=== PATIENT | female | born 1985 | race Caucasian/White ===

== ENCOUNTER 2017-09-27 20:08 | Emergency (ER) | payer BC, OTHER | END 2017-09-27 20:45 | disposition home or self-care (01) | LOC: ER 20:08 | DX: S60.021A Contusion of right index finger without damage to nail, initial encounter (principal); W23.0XXA Caught, crushed, jammed, or pinched between moving objects, initial encounter; Y93.89 Activity, other specified; Y92.89 Other specified places as the place of occurrence of the external cause; Y99.8 Other external cause status | CPT/HCPCS: 73140; 99284 ==

== ENCOUNTER 2020-05-29 17:39 | Emergency (ER) | payer BC, OTHER ==
[~2020-05-29] VITALS: Ht 157.5 cm; Wt 59.0 kg
[2020-05-29 18:09] VITALS: BP 117/67
[2020-05-29 18:25] LABS: BILIRUBIN,URINE NEGATIVE (NEG); CLARITY,URINE CLOUDY; COLOR,URINE YELLOW; NITRITE,URINE POSITIVE (NEG); PROTEIN,URINE 100 mg/dL (NEG-TRACE); UROBILINOGEN,URINE 0.2 mg/dL (0.2 mg/dL)
[2020-05-29 18:30] LABS: BACTERIA,URINE FEW /HPF (0-FEW); RBC,URINE 0 /HPF (0-2); WBC,URINE TNTC /HPF (0-4)
[2020-05-29] MEDS ORDERED: PHEN100T82 PO (18:53)
[2020-05-29] MEDS ORDERED: CEPH-264 PO (18:54)
--- NOTE | 2020-05-29 18:55 | PHYS DOC ---
Past Medical History Past Medical History: No Pertinent History Past Surgical History: No Surgical History Smoking Status: Current Every Day Smoker Alcohol Use: Occasionally Drug Use: None General Adult EDM: Chief Complaint: URINARY FREQUENCY HPI: HPI: Patient is a 34 year old female who presents with right flank pain with urinary frequency. She states she is been taking Azo. She states she gets frequent urine Juan Luis tract infections. She has a straight of kidney stones. Patient is concerned that she has a kidney stone that is blocking. Patient denies nausea, vomiting, abdominal pain, fever, diarrhea, cough, chest pain, shortness of breath. She rates her pain a 5 out of 10 it is a dull aching pain. Patient has a history of urinary tract infections and kidney stone. Review of Systems: Review of Systems: Constitutional: Denies fever or chills. [] Eyes: Denies change in visual acuity. [] HENT: Denies nasal congestion or sore throat. [] Respiratory: Denies cough or shortness of breath. [] Cardiovascular: Denies chest pain or edema. [] GI: Denies abdominal pain, nausea, vomiting, bloody stools or diarrhea. [] : Denies dysuria. + Urinary frequency [] Musculoskeletal: + Right flank back pain or denies joint pain. [] Integument: Denies rash. [] Neurologic: Denies headache, focal weakness or sensory changes. [] Endocrine: Denies polyuria or polydipsia. [] Lymphatic: Denies swollen glands. [] Psychiatric: Denies depression or anxiety. [] Heart Score: Risk Factors: Risk Factors: DM, Current or recent (<one month) smoker, HTN, HLP, family history of CAD, obesity. Risk Scores: Score 0 - 3: 2.5% MACE over next 6 weeks - Discharge Home Score 4 - 6: 20.3% MACE over next 6 weeks - Admit for Clinical Observation Score 7 - 10: 72.7% MACE over next 6 weeks - Early Invasive Strategies Physical Exam: PE: Constitutional: Well developed, well nourished, no acute distress, non-toxic appearance. [] HENT: Normocephalic, atraumatic, bilateral external ears normal, oropharynx moist, no oral exudates, nose normal. [] Eyes: PERRLA, EOMI, conjunctiva normal, no discharge. [] Neck: Normal range of motion, no tenderness, supple, no stridor. [] Cardiovascular:Heart rate regular rhythm, no murmur [] Lungs & Thorax: Bilateral breath sounds clear to auscultation [] Abdomen: Bowel sounds normal, soft, no tenderness, no masses, no pulsatile masses. [] Skin: Warm, dry, no erythema, no rash. [] Back: No tenderness, right CVA tenderness. [] Extremities: No tenderness, no cyanosis, no clubbing, ROM intact, no edema. [] Neurologic: Alert and oriented X 3, normal motor function, normal sensory function, no focal deficits noted. [] Psychologic: Affect normal, judgement normal, mood normal. [] Current Patient Data: Labs: Laboratory Tests Test 05/29/20 18:15 05/29/20 18:17 Urine Collection Type Unknown Urine Color Yellow Urine Clarity Cloudy Urine pH 6.0 (<5.0-8.0) Urine Specific [place] 1.015 (1.000-1.030) Urine Protein 100 mg/dL (NEG-TRACE) Urine Glucose (UA) Negative mg/dL (NEG) Urine Ketones (Stick) Negative mg/dL (NEG) Urine Blood Moderate (NEG) Urine Nitrite Positive (NEG) Urine Bilirubin Negative (NEG) Urine Urobilinogen Dipstick 0.2 mg/dL (0.2 mg/dL) Urine Leukocyte Esterase Large (NEG) Urine RBC 0 /HPF (0-2) Urine WBC Tntc /HPF (0-4) Urine Bacteria Few /HPF (0-FEW) Urine Mucus Mod /LPF POC Urine HCG, Qualitative Hcg negative (Negative) EKG: EKG: [] Radiology/Procedures: Radiology/Procedures: [] Course & Med Decision Making: Course & Med Decision Making Pertinent Labs and Imaging studies reviewed. (See chart for details) See HPI. Right CVA tenderness. Abdomen soft and nontender. Vital signs within normal limits. Skin pink warm and dry. Ambulatory with a steady gait. Speaks in full complete sentences. Alert and oriented x4. Patient has a urinary tract infection with positive nitrites. She will be sent home with Keflex and Pyridium. Patient to follow-up with a primary care physician or a urologist. KUB read by Dr Najera as no obvious kidney stone. [] Odalis Disclaimer: Odalis Disclaimer: This electronic medical record was generated, in whole or in part, using a voice recognition dictation system. Departure Departure Impression: Primary Impression: Urinary tract infection Qualified Codes: N39.0 - Urinary tract infection, site not specified Disposition: 01 DC HOME SELF CARE/HOMELESS Condition: STABLE Referrals: NO PCP (PCP) Patient Instructions: Urinary Tract Infection Additional Instructions: Follow-up with [facility] u[facility] as you get frequent urinary tract infections. We do not have urology here at this facility. Take medication as prescribed and with food. Drink plenty of water. Scripts Cephalexin (KEFLEX) 500 Mg Capsule 1 CAP PO BID for 7 Days, #14 CAP 0 Refills Prov: TIMOTHY LEO APRN 05/29/20 Phenazopyridine Hcl (PYRIDIUM) 100 Mg Tablet 1 TAB PO TID for urinary discomfort for 3 Days, #9 TAB 0 Refills Prov: TIMOTHY LEO APRN 05/29/20 TIMOTHY LEO APRN May 29, 2020 18:55
--- NOTE | 2020-05-29 19:12 | RAD ---
Exam: Abdomen one view INDICATION: Right upper quadrant abdominal pain TECHNIQUE: Supine view the abdomen Comparisons: None FINDINGS: There is stool noted throughout the colon to level the rectum in a nonobstructive bowel gas pattern. Large amount stool is noted in the colon. Rounded calcification noted in the left upper quadrant measuring 8 mm. No suspicious masses. Visualized osseous structures are unremarkable. IMPRESSION: 1. An 8 mm rounded calcification the left upper quadrant may represent a renal calculus or bowel contents. 2. Moderate amount of stool in the colon. Nonobstructive bowel gas pattern. Electronically signed by: Brittany Shelton MD (05/29/2020 7:10 PM) VINICIUS
== END 2020-05-29 19:16 | disposition home or self-care (01) ==
LOC: ER 17:39
DX: N39.0 Urinary tract infection, site not specified (principal); R35.0 Frequency of micturition; R10.9 Unspecified abdominal pain; F17.200 Nicotine dependence, unspecified, uncomplicated
CPT/HCPCS: 74018; 81001; 81025; 87086; 99284

== ENCOUNTER 2020-06-17 07:11 | Inpatient (IN) | payer OTHER ==
[~2020-06-17] VITALS: Ht 157.5 cm; Wt 59.0 kg
[~2020-06-17 07:11] MED LIST: CEPH-264 PO; PHEN100T82 PO
[2020-06-17] MEDS ORDERED: KETOROLAC 15 MG/ML VIAL. IVP ONE (07:30)
[2020-06-17] MEDS ORDERED: ONDANSETRON PF 4 MG/2 ML VIAL. IVP ONE (07:30)
[2020-06-17] MEDS ORDERED: cefTRIAXone IV Push 1 GM VIAL. IVP ONE (07:30)
[2020-06-17] MEDS ORDERED: IV NORMAL SALINE 1000ML BAG 1,000 ML IV ONE ×2 (07:30→09:00)
--- NOTE | 2020-06-17 07:30 | PHYS DOC ---
Past Medical History Past Medical History: Kidney Infection, Kidney Stone, UTI Past Surgical History: No Surgical History Smoking Status: Current Every Day Smoker Alcohol Use: Occasionally Drug Use: None General Adult EDM: Chief Complaint: PAIN ON URINATION HPI: HPI: Patient is a 34 year old presents with chief complaint of dysuria. Patient was here at the beginning of May was diagnosed with urinary tract infection. Over the last 3 to 4 days patient's had progressively worsening symptoms that consist of back pain with dysuria. Patient had also a headache and subjective fever and chills. Patient had some nausea as well. Symptoms are worse with urination and palpation of her back. Patient states her pain is in the back and radiates to her abdomen. Pain is moderate at rest and more severe at times and severity. Symptoms are somewhat relieved with Tylenol but not completely. Review of Systems: Review of Systems: Constitutional: Patient complains of chills and subjective fever Eyes: Denies change in visual acuity. [] HENT: Denies nasal congestion or sore throat. [] Respiratory: Patient's had a mild cough but no shortness of breath. [] Cardiovascular: Denies chest pain or edema. [] GI: Complains abdominal pain with nausea, no, bloody stools or diarrhea. [] : Complains of dysuria Musculoskeletal: Complains of back pain but no joint pain. [] Integument: Denies rash. [] Neurologic: Complains of headache but no focal weakness or sensory changes. [] Endocrine: Denies polyuria or polydipsia. [] Lymphatic: Denies swollen glands. [] Psychiatric: Denies depression or anxiety. [] Heart Score: Risk Factors: Risk Factors: DM, Current or recent (<one month) smoker, HTN, HLP, family history of CAD, obesity. Risk Scores: Score 0 - 3: 2.5% MACE over next 6 weeks - Discharge Home Score 4 - 6: 20.3% MACE over next 6 weeks - Admit for Clinical Observation Score 7 - 10: 72.7% MACE over next 6 weeks - Early Invasive Strategies Current Medications: Current Medications Ketorolac Tromethamine (Toradol 15mg Vial) 15 mg 1X ONCE IVP Last administered on 06/17/20at 07:56; Start 06/17/20 at 07:30; Stop 06/17/20 at 07:31; Status DC Ondansetron HCl (Zofran) 4 mg 1X ONCE IVP Last administered on 06/17/20at 07:55; Start 06/17/20 at 07:30; Stop 06/17/20 at 07:31; Status DC Sodium Chloride 1,000 ml @ 1,000 mls/hr 1X ONCE IV Last administered on 06/17/20at 07:55; Start 06/17/20 at 07:30; Stop 06/17/20 at 08:29; Status DC Ceftriaxone Sodium (Rocephin) 1 gm 1X ONCE IVP Last administered on 06/17/20at 07:58; Start 06/17/20 at 07:30; Stop 06/17/20 at 07:31; Status DC Active Scripts Active Keflex (Cephalexin) 500 Mg Capsule 1 Cap PO BID 7 Days Pyridium (Phenazopyridine Hcl) 100 Mg Tablet 1 Tab PO TID 3 Days Allergies: Allergies: Allergies Coded Allergies Type Severity Reaction Last Updated Verified Sulfa (Sulfonamide Antibiotics) Allergy Intermediate HIVES 05/29/20 Yes sulfamethoxazole Allergy Intermediate HIVES 05/29/20 Yes trimethoprim Allergy Intermediate HIVES 05/29/20 Yes Physical Exam: PE: Constitutional: Well developed, well nourished, MILD DISTRESS,non-toxic appearance. [] HENT: Normocephalic, atraumatic, bilateral external ears normal, no trismus, nose normal. [] Eyes: PERRLA, EOMI, conjunctiva normal, no discharge. [] Neck: Normal range of motion, no tenderness, supple, no stridor. [] Cardiovascular:TACHYCARDIA no murmur [] Lungs & Thorax: Bilateral breath sounds clear, no respiratory distress Abdomen: Soft with mild lower abdominal tenderness, no guarding, no rebound no masses, no pulsatile masses. [] Skin: Warm, dry, no erythema, no rash. [] Back: No tenderness, bilateral CVA tenderness Extremities: No tenderness, no cyanosis, no clubbing, ROM intact, no edema. [] Neurologic: Alert and oriented X 3, normal motor function, normal sensory function, no focal deficits noted. [] Psychologic: Affect normal, judgement normal, mood normal. [] Current Patient Data: Labs: Laboratory Tests Test 06/17/20 07:21 06/17/20 07:30 Bedside Urine HCG, Qualitative Hcg negative White Blood Count 8.5 x10^3/uL Red Blood Count 4.00 x10^6/uL Hemoglobin 12.1 g/dL Hematocrit 35.3 % Mean Corpuscular Volume 88 fL Mean Corpuscular Hemoglobin 30 pg Mean Corpuscular Hemoglobin Concent 34 g/dL Red Cell Distribution Width 13.5 % Platelet Count 174 x10^3/uL Neutrophils (%) (Auto) 79 % Lymphocytes (%) (Auto) 8 % Monocytes (%) (Auto) 13 % Eosinophils (%) (Auto) 0 % Basophils (%) (Auto) 0 % Neutrophils # (Auto) 6.7 x10^3/uL Lymphocytes # (Auto) 0.7 x10^3/uL Monocytes # (Auto) 1.1 x10^3/uL Eosinophils # (Auto) 0.0 x10^3/uL Basophils # (Auto) 0.0 x10^3/uL Urine Collection Type Unknown Urine Color Karen Urine Clarity Clear Urine pH 6.5 Urine Specific [place] 1.020 Urine Protein 100 mg/dL Urine Glucose (UA) Negative mg/dL Urine Ketones (Stick) Negative mg/dL Urine Blood Small Urine Nitrite Positive Urine Bilirubin Small Urine Urobilinogen Dipstick 4.0 mg/dL Urine Leukocyte Esterase Moderate Urine RBC 3-5 /HPF Urine WBC >40 /HPF Urine Squamous Epithelial Cells Mod /LPF Urine Bacteria Many /HPF Urine Mucus Mod /LPF Sodium Level 132 mmol/L Potassium Level 3.4 mmol/L Chloride Level 96 mmol/L Carbon Dioxide Level 24 mmol/L Anion Gap 12 Blood Urea Nitrogen 10 mg/dL Creatinine 0.8 mg/dL Estimated GFR (Cockcroft-Gault) 82.6 BUN/Creatinine Ratio 13 Glucose Level 158 mg/dL Lactic Acid Level 2.1 mmol/L Calcium Level 9.0 mg/dL Total Bilirubin 0.5 mg/dL Aspartate Amino Transf (AST/SGOT) 14 U/L Alanine Aminotransferase (ALT/SGPT) 17 U/L Alkaline Phosphatase 65 U/L Total Protein 7.1 g/dL Albumin 2.9 g/dL Albumin/Globulin Ratio 0.7 Lipase 102 U/L Current Medications Medications (Trade) Dose Ordered Sig/Brent Route PRN Reason Start Time Stop Time Status Last Admin Dose Admin Ketorolac Tromethamine (Toradol 15mg Vial) 15 mg 1X ONCE IVP 06/17/20 07:30 06/17/20 07:31 DC 06/17/20 07:56 Ondansetron HCl (Zofran) 4 mg 1X ONCE IVP 06/17/20 07:30 06/17/20 07:31 DC 06/17/20 07:55 Sodium Chloride 1,000 ml @ 1,000 mls/hr 1X ONCE IV 06/17/20 07:30 06/17/20 08:29 DC 06/17/20 07:55 Ceftriaxone Sodium (Rocephin) 1 gm 1X ONCE IVP 06/17/20 07:30 06/17/20 07:31 DC 06/17/20 07:58 Laboratory Tests Test 06/17/20 07:21 POC Urine HCG, Qualitative Hcg negative (Negative) Vital Signs: Vital Signs Date Time Temp Pulse Resp B/P (MAP) Pulse Ox O2 Delivery O2 Flow Rate FiO2 06/17/20 07:20 99.3 131 20 113/59 (77) 96 Room Air 99.3 EKG: EKG: [] Radiology/Procedures: Radiology/Procedures: [][facility] [address] [place] [address] IMAGING REPORT Signed PATIENT: ISIDRO LOMELI ACCOUNT: [id number] : 1985 LOCATION: ER AGE: 34 SEX: F EXAM STATUS: REG ER ORD. PHYSICIAN: RUIZ OLVERA MD REASON: BILATERAL FLANK PAIN, N/V, CHILLS, FEVER X 5 DAYS PROCEDURE: CT ABDOMEN PELVIS WO CONTRAST Exam: CT abdomen/pelvis without intravenous contrast Indication: Bilateral flank pain. Nausea and vomiting, fever and chills for 5 days Comparison: None Technique: Helical CT imaging performed of the abdomen and pelvis without the use of intravenous contrast. Sagittal and coronal reformats were obtained. One or more of the following individualized dose reduction techniques were utilized for this examination: 1. Automated exposure control 2. Adjustment of the mA and/or kV according to patient size 3. Use of iterative reconstruction technique. Findings: Inherently limited evaluation without intravenous contrast. Lower chest: Lung bases are clear. The heart is normal in size. Liver: The liver is enlarged measuring 21 cm craniocaudally. Gallbladder/Biliary Tree: Normal. Pancreas: Normal. Spleen: The spleen is at the upper limit of normal measuring 13 cm in AP diameter. Adrenal Glands: Normal. Kidneys/Ureters/Bladder: There is mild left hydronephrosis and perinephric fat stranding. There is a punctate calculus in the inferior left renal pole but no obstructing calculus in the left renal pelvis or ureter. A calcification in the pelvis on the left is likely phlebolith. There are multiple smudgy calcifications in the right kidney along the corticomedullary junction consistent with medullary nephrocalcinosis. No right hydronephrosis. The right ureter and bladder are normal. Reproductive Organs: Uterus is retroverted. No adnexal mass. A tampon is in the vagina. Stomach, small bowel, and colon: Stomach, small bowel, colon, and appendix are normal. Vasculature: Abdominal aorta is normal in caliber. Lymph Nodes: There is no lymphadenopathy. Peritoneum and retroperitoneum: No free fluid or free air. Bones: No acute osseous abnormality. Impression: 1. Left nephrolithiasis without obstructing calculus identified. This could be related to recent passed stone. 2. Punctate calculus in the left kidney and calcifications in the right kidney consistent with medullary nephrocalcinosis. 3. Mild hepatomegaly. Electronically signed by: Micheline Meza MD (06/17/2020 8:09 AM) [id number] DICTATED and SIGNED BY: MICHELINE MEZA MD DATE: 06/17/20 [id number] [facility] [address] [place], [place] [id number] IMAGING REPORT Signed PATIENT: ISIDRO LOMELI ACCOUNT: [id number] : 1985 LOCATION: ER AGE: 34 SEX: F EXAM STATUS: REG ER ORD. PHYSICIAN: RUIZ OLVERA MD REASON: fever PROCEDURE: PORTABLE CHEST 1V EXAM: XR CHEST 1V 06/17/2020 7:33 AM CLINICAL INDICATION: Fever COMPARISON: None TECHNIQUE: AP upright view of the chest FINDINGS: The heart and mediastinum are normal. Lungs are well-expanded and clear. No consolidation, pleural effusion, or pneumothorax. Pulmonary vascularity is normal. No acute osseous abnormality. IMPRESSION: Normal chest radiograph. Electronically signed by: Micheline Meza MD (06/17/2020 7:52 AM) [id number] DICTATED and SIGNED BY: MICHELINE MEZA MD DATE: 06/17/20 [id number] Course & Med Decision Making: Course & Med Decision Making Pertinent Labs and Imaging studies reviewed. (See chart for details) [] 34-year-old female presents with UTI symptoms. Patient underwent a CAT scan to rule out ureterolithiasis. Patient tachycardic with chills and a subjective fever. Patient given IV fluids and antibiotics. Patient has a mildly elevated lactic acid. On reassessment patient's heart rates is under 100 and her systolic blood pressure is in the 90s. Patient appears to have early sepsis and will need IV fluids and antibiotics in the hospital. Patient will be admitted to Dr. Dawkins. Patient also has a cough, and works at [employer] and we swabbed for COVID-19. Dragon Disclaimer: Dragon Disclaimer: This electronic medical record was generated, in whole or in part, using a voice recognition dictation system. Date and Time of Reassessment Date: Jun 17, 2020 Time: 08:50 Fluid Challenge Is the fluid challenge complet: Yes IBW Target Volume Used: No BMI > 30: No Vital Signs Vital Signs: Vital Signs Date Time Temp Pulse Resp B/P (MAP) Pulse Ox O2 Delivery O2 Flow Rate FiO2 06/17/20 07:20 99.3 131 20 113/59 (77) 96 Room Air 99.3 Vital Signs Date Time Temp Pulse Resp B/P (MAP) Pulse Ox O2 Delivery O2 Flow Rate FiO2 06/17/20 07:20 99.3 131 20 113/59 (77) 96 Room Air 99.3 HR 90'S, SBP 90'S AT 8:50 Temperature Source: Oral Respirations Respiratory Effort: Normal Respiratory Pattern: Normal Cardiovascular Pulse Rhythm: Regular Heart: Nml rate, reg. rhythm Capillary Refil Capillary Refill: Rt Hand < 3 seconds Peripheral Pulse Pulse Location: Radial Pulse Strength: Normal (2+) Pulse Assessment Method: NIBP Integumentary Skin: Warm, Dry Skin Moisture: Dry Skin Turgor: Normal Skin Color: warm, dry Fingernail Color: WNL Departure Departure Impression: Primary Impression: Urinary tract infection Additional Impressions: Pyelonephritis Sepsis Flank pain Suspected COVID-19 virus infection Disposition: ADMITTED INPT THIS HOSP Admitting Physician: SAUL DEL CID) Condition: STABLE Referrals: NO PCP (PCP) RUIZ OLVERA MD Jun 17, 2020 07:30
[2020-06-17 07:43] LABS: BILIRUBIN,URINE SMALL (NEG); CLARITY,URINE CLEAR; COLOR,URINE AMBER; NITRITE,URINE POSITIVE (NEG); PH,URINE 6.5 (<5.0-8.0); PROTEIN,URINE 100 mg/dL (NEG-TRACE)
[2020-06-17 07:45] LABS: BASO % 0 % (0-3); EOS % 0 % (0-3); HEMATOCRIT 35.3 % (36.0-47.0); HEMOGLOBIN 12.1 g/dL (12.0-15.5); LYMPH # 0.7 x10^3/uL (1.0-4.8); LYMPH % 8 % (24-48); MEAN CORPUSCULAR HEMOGLOBIN 30 pg (25-35); MEAN CORPUSCULAR HGB CONC 34 g/dL (31-37); MEAN CORPUSCULAR VOLUME 88 fL (79-100); MONO # 1.1 x10^3/uL (0.0-1.1); MONO % 13 % (0-9); NEUT # 6.7 x10^3/uL (1.8-7.7); NEUT % 79 % (31-73); PLATELET COUNT 174 x10^3/uL (140-400); RED CELL DISTRIBUTION WIDTH 13.5 % (11.5-14.5); WHITE BLOOD COUNT 8.5 x10^3/uL (4.0-11.0)
--- NOTE | 2020-06-17 07:54 | RAD ---
EXAM: XR CHEST 1V 06/17/2020 7:33 AM CLINICAL INDICATION: Fever COMPARISON: None TECHNIQUE: AP upright view of the chest FINDINGS: The heart and mediastinum are normal. Lungs are well-expanded and clear. No consolidatio n, pleural effusion, or pneumothorax. Pulmonary vascularity is normal. No acute osseous abnormality. IMPRESSION: Normal chest radiograph. Electronically signed by: Micheline Meza MD (06/17/2020 7:52 AM) [id number]
[2020-06-17 08:00] LABS: CREATININE 0.8 mg/dL (0.6-1.0); GFR 82.6; POTASSIUM 3.4 mmol/L (3.5-5.1)
[2020-06-17 08:01] LABS: ALBUMIN 2.9 g/dL (3.4-5.0); ALBUMIN/GLOBULIN RATIO 0.7 (1.0-1.7); TOTAL BILIRUBIN 0.5 mg/dL (0.2-1.0); TOTAL PROTEIN 7.1 g/dL (6.4-8.2)
--- NOTE | 2020-06-17 08:11 | RAD ---
Exam: CT abdomen/pelvis without intravenous contrast Indication: Bilateral flank pain. Nausea and vomiting, fever and chills for 5 days Comparison: None Technique: Helical CT imaging performed of the abdomen and pelvis without the use of intravenous cont rast. Sagittal and coronal reformats were obtained. One or more of the following individualized dose reduction techniques were utilized for this examinat ion: 1. Automated exposure control 2. Adjustment of the mA and/or kV according to patient size 3. Use of iterative reconstruction technique. Findings: Inherently limited evaluation without intravenous contrast. Lower chest: Lung bases are clear. The heart is normal in size. Liver: The liver is enlarged measuring 21 cm craniocaudally. Gallbladder/Biliary Tree: Normal. Pancreas: Normal. Spleen: The spleen is at the upper limit of normal measuring 13 cm in AP diameter. Adrenal Glands: Normal. Kidneys/Ureters/Bladder: There is mild left hydronephrosis and perinephric fat stranding. There is a punctate calculus in the inferior left renal pole but no obstructing calculus in the left renal pelvi s or ureter. A calcification in the pelvis on the left is likely phlebolith. There are multiple smudg y calcifications in the right kidney along the corticomedullary junction consistent with medullary ne phrocalcinosis. No right hydronephrosis. The right ureter and bladder are normal. Reproductive Organs: Uterus is retroverted. No adnexal mass. A tampon is in the vagina. Stomach, small bowel, and colon: Stomach, small bowel, colon, and appendix are normal. Vasculature: Abdominal aorta is normal in caliber. Lymph Nodes: There is no lymphadenopathy. Peritoneum and retroperitoneum: No free fluid or free air. Bones: No acute osseous abnormality. Impression: 1. Left nephrolithiasis without obstructing calculus identified. This could be related to recent pas sed stone. 2. Punctate calculus in the left kidney and calcifications in the right kidney consistent with medul dona nephrocalcinosis. 3. Mild hepatomegaly. Electronically signed by: Micheline Meza MD (06/17/2020 8:09 AM) [id number]
[2020-06-17 08:38] LABS: BACTERIA,URINE MANY /HPF (0-FEW); WBC,URINE >40 /HPF (0-4)
--- NOTE | 2020-06-17 08:59 | PDOC1 ---
History and Physical Date of Service: DOS: DATE: 06/17/20 TIME: 08:57 Chief Complaint: Chief Complain: Pain on urination History of Present Illness: HPI: PT TO ED VIA POV, PT TAKEN TO ER ROOM 6. PT C/O BILAT FLANK PAIN, NAUSEA, VOMITING, UTI SYMPTOMS FOR 5 DAYS. PT REPORTS SHE WAS SEEN HERE 5 DAYS AGO FOR UTI AND STATES SHE DID NOT FOLLOWUP WITH UROLOGY. PT REPORTS SHES HAD FEVERS, CHILLS AND COUGH, STATES POSSIBLE EXPOSURE AT WORK FOR COVID AT [employer]. 34 year old presents with chief complaint of dysuria. Patient was here at the beginning of May was diagnosed with urinary tract infection. Over the last 3 to 4 days patient's had progressively worsening symptoms that consist of back pain with dysuria. Patient had also a headache and subjective fever and chills. Patient had some nausea as well. Symptoms are worse with urination and palpation of her back. Patient states her pain is in the back and radiates to her abdomen. Pain is moderate at rest and more severe at times and severity. Symptoms are somewhat relieved with Tylenol but not completely. Past Medical/Surgical History: PMH/PSH: Past Medical History: Kidney Infection, Kidney Stone, UTI Past Surgical History: No Surgical History Allergies: Allergies: Coded Allergies: Sulfa (Sulfonamide Antibiotics) (Verified Allergy, Intermediate, HIVES, 05/29/20) sulfamethoxazole (Verified Allergy, Intermediate, HIVES, 05/29/20) trimethoprim (Verified Allergy, Intermediate, HIVES, 05/29/20) Family History: Family History: Reviewed with no relevant findings Social History: Social History: Smoking Status: Current Every Day Smoker Alcohol Use: Occasionally Drug Use: None Current Medications: Current Medications Current Medications Ketorolac Tromethamine (Toradol 15mg Vial) 15 mg 1X ONCE IVP Last administered on 06/17/20at 07:56; Start 06/17/20 at 07:30; Stop 06/17/20 at 07:31; Status DC Ondansetron HCl (Zofran) 4 mg 1X ONCE IVP Last administered on 06/17/20at 07:55; Start 06/17/20 at 07:30; Stop 06/17/20 at 07:31; Status DC Sodium Chloride 1,000 ml @ 1,000 mls/hr 1X ONCE IV Last administered on 06/17/20at 07:55; Start 06/17/20 at 07:30; Stop 06/17/20 at 08:29; Status DC Ceftriaxone Sodium (Rocephin) 1 gm 1X ONCE IVP Last administered on 06/17/20at 07:58; Start 06/17/20 at 07:30; Stop 06/17/20 at 07:31; Status DC Ondansetron HCl (Zofran) 4 mg PRN Q8HRS PRN IV NAUSEA/VOMITING; Start 06/17/20 at 09:00; Stop 06/18/20 at 08:59 Sodium Chloride 1,000 ml @ 125 mls/hr Q8H IV ; Start 06/17/20 at 09:00; Stop 06/18/20 at 08:59 Acetaminophen (Tylenol) 650 mg PRN Q4HRS PRN PO FEVER > 100.3'F; Start 06/17/20 at 09:00; Stop 06/18/20 at 08:59 Active Scripts Active Keflex (Cephalexin) 500 Mg Capsule 1 Cap PO BID 7 Days Pyridium (Phenazopyridine Hcl) 100 Mg Tablet 1 Tab PO TID 3 Days ROS: Review of Systems Review of System REVIEW OF SYSTEMS: GENERAL: Denies weakness SKIN: No bruising, hair changes or rashes. EYES: No blurred, double or loss of vision. NOSE AND THROAT: No history of nosebleeds, hoarseness or sore throat. HEART: No history of palpitations, chest pain or shortness of breath on exertion. LUNGS: Denies cough, hemoptysis, wheezing or shortness of breath. GASTROINTESTINAL: Denies changes in appetite, nausea, vomiting, diarrhea or constipation. GENITOURINARY: No history of frequency, urgency, hesitancy or nocturia. NEUROLOGIC: Denies history of numbness, tingling, or tremor. PSYCHIATRIC: No history of panic, anxiety or depression. ENDOCRINE: No history of heat or cold intolerance, polyuria or polydipsia. EXTREMITIES: Denies joint pain, pain on walking or stiffness. Physical Exam: Vital Signs: Vital Signs Date Time Temp Pulse Resp B/P (MAP) Pulse Ox O2 Delivery O2 Flow Rate FiO2 06/17/20 07:20 99.3 131 20 113/59 (77) 96 Room Air 99.3 Physcial Exam: GEN: No apparent distress. Alert and oriented HEENT: Normal cephalic, atraumatic, external auditory canals are patent EYES: Extraocular muscles are intact, pupil are equally round and reactive to light and accommodation MUSCULOSKELETAL: Well developed , well nourished, good range of motion ENDOCRINE: No thyromegaly was palpated LYMPHATICS: No cervical chain or axillary nodes were noted HEMATOPOIETIC: No bruising NECK: Supple, no JVD, no thyromegaly was noted LUNGS: Clear to auscultation in all lung calderón without rhonchi or wheezing HEART: RRR, S!, S2 present. Peripheral pulses intact, no obvious murmurs noted ABDOMEN: Soft, nontender. Positive bowel sounds, no organomegaly, normal bowel sounds EXTREMITIES: Without clubbing, cyanosis, or edema. Pedal pulses intact. Negative Homans sign NEUROLOGIC: Normal speech and tone. A&O x 3, moves all extremities, no obvious focal deficits PSYCHIATRIC: Normal affect, normal mood. Stable SKIN: No ulcerations or rashes, good skin turgor, no jaundice VASCULAR: Good capillary refill, neurovascular bundle appears to be intact Labs: Labs: Laboratory Tests Test 06/17/20 07:21 06/17/20 07:30 Bedside Urine HCG, Qualitative Hcg negative (Negative) White Blood Count 8.5 x10^3/uL (4.0-11.0) Red Blood Count 4.00 x10^6/uL (3.50-5.40) Hemoglobin 12.1 g/dL (12.0-15.5) Hematocrit 35.3 % (36.0-47.0) Mean Corpuscular Volume 88 fL (79-100) Mean Corpuscular Hemoglobin 30 pg (25-35) Mean Corpuscular Hemoglobin Concent 34 g/dL (31-37) Red Cell Distribution Width 13.5 % (11.5-14.5) Platelet Count 174 x10^3/uL (140-400) Neutrophils (%) (Auto) 79 % (31-73) Lymphocytes (%) (Auto) 8 % (24-48) Monocytes (%) (Auto) 13 % (0-9) Eosinophils (%) (Auto) 0 % (0-3) Basophils (%) (Auto) 0 % (0-3) Neutrophils # (Auto) 6.7 x10^3/uL (1.8-7.7) Lymphocytes # (Auto) 0.7 x10^3/uL (1.0-4.8) Monocytes # (Auto) 1.1 x10^3/uL (0.0-1.1) Eosinophils # (Auto) 0.0 x10^3/uL (0.0-0.7) Basophils # (Auto) 0.0 x10^3/uL (0.0-0.2) Urine Collection Type Unknown Urine Color Karen Urine Clarity Clear Urine pH 6.5 (<5.0-8.0) Urine Specific [place] 1.020 (1.000-1.030) Urine Protein 100 mg/dL (NEG-TRACE) Urine Glucose (UA) Negative mg/dL (NEG) Urine Ketones (Stick) Negative mg/dL (NEG) Urine Blood Small (NEG) Urine Nitrite Positive (NEG) Urine Bilirubin Small (NEG) Urine Urobilinogen Dipstick 4.0 mg/dL (0.2 mg/dL) Urine Leukocyte Esterase Moderate (NEG) Urine RBC 3-5 /HPF (0-2) Urine WBC >40 /HPF (0-4) Urine Squamous Epithelial Cells Mod /LPF Urine Bacteria Many /HPF (0-FEW) Urine Mucus Mod /LPF Sodium Level 132 mmol/L (136-145) Potassium Level 3.4 mmol/L (3.5-5.1) Chloride Level 96 mmol/L (98-107) Carbon Dioxide Level 24 mmol/L (21-32) Anion Gap 12 (6-14) Blood Urea Nitrogen 10 mg/dL (7-20) Creatinine 0.8 mg/dL (0.6-1.0) Estimated GFR (Cockcroft-Gault) 82.6 BUN/Creatinine Ratio 13 (6-20) Glucose Level 158 mg/dL (70-99) Lactic Acid Level 2.1 mmol/L (0.4-2.0) Calcium Level 9.0 mg/dL (8.5-10.1) Total Bilirubin 0.5 mg/dL (0.2-1.0) Aspartate Amino Transf (AST/SGOT) 14 U/L (15-37) Alanine Aminotransferase (ALT/SGPT) 17 U/L (14-59) Alkaline Phosphatase 65 U/L (46-116) Total Protein 7.1 g/dL (6.4-8.2) Albumin 2.9 g/dL (3.4-5.0) Albumin/Globulin Ratio 0.7 (1.0-1.7) Lipase 102 U/L (73-393) Laboratory Tests Test 06/17/20 07:21 06/17/20 07:30 Bedside Urine HCG, Qualitative Hcg negative (Negative) White Blood Count 8.5 x10^3/uL (4.0-11.0) Red Blood Count 4.00 x10^6/uL (3.50-5.40) Hemoglobin 12.1 g/dL (12.0-15.5) Hematocrit 35.3 % (36.0-47.0) Mean Corpuscular Volume 88 fL (79-100) Mean Corpuscular Hemoglobin 30 pg (25-35) Mean Corpuscular Hemoglobin Concent 34 g/dL (31-37) Red Cell Distribution Width 13.5 % (11.5-14.5) Platelet Count 174 x10^3/uL (140-400) Neutrophils (%) (Auto) 79 % (31-73) Lymphocytes (%) (Auto) 8 % (24-48) Monocytes (%) (Auto) 13 % (0-9) Eosinophils (%) (Auto) 0 % (0-3) Basophils (%) (Auto) 0 % (0-3) Neutrophils # (Auto) 6.7 x10^3/uL (1.8-7.7) Lymphocytes # (Auto) 0.7 x10^3/uL (1.0-4.8) Monocytes # (Auto) 1.1 x10^3/uL (0.0-1.1) Eosinophils # (Auto) 0.0 x10^3/uL (0.0-0.7) Basophils # (Auto) 0.0 x10^3/uL (0.0-0.2) Urine Collection Type Unknown Urine Color Karen Urine Clarity Clear Urine pH 6.5 (<5.0-8.0) Urine Specific [place] 1.020 (1.000-1.030) Urine Protein 100 mg/dL (NEG-TRACE) Urine Glucose (UA) Negative mg/dL (NEG) Urine Ketones (Stick) Negative mg/dL (NEG) Urine Blood Small (NEG) Urine Nitrite Positive (NEG) Urine Bilirubin Small (NEG) Urine Urobilinogen Dipstick 4.0 mg/dL (0.2 mg/dL) Urine Leukocyte Esterase Moderate (NEG) Urine RBC 3-5 /HPF (0-2) Urine WBC >40 /HPF (0-4) Urine Squamous Epithelial Cells Mod /LPF Urine Bacteria Many /HPF (0-FEW) Urine Mucus Mod /LPF Sodium Level 132 mmol/L (136-145) Potassium Level 3.4 mmol/L (3.5-5.1) Chloride Level 96 mmol/L (98-107) Carbon Dioxide Level 24 mmol/L (21-32) Anion Gap 12 (6-14) Blood Urea Nitrogen 10 mg/dL (7-20) Creatinine 0.8 mg/dL (0.6-1.0) Estimated GFR (Cockcroft-Gault) 82.6 BUN/Creatinine Ratio 13 (6-20) Glucose Level 158 mg/dL (70-99) Lactic Acid Level 2.1 mmol/L (0.4-2.0) Calcium Level 9.0 mg/dL (8.5-10.1) Total Bilirubin 0.5 mg/dL (0.2-1.0) Aspartate Amino Transf (AST/SGOT) 14 U/L (15-37) Alanine Aminotransferase (ALT/SGPT) 17 U/L (14-59) Alkaline Phosphatase 65 U/L (46-116) Total Protein 7.1 g/dL (6.4-8.2) Albumin 2.9 g/dL (3.4-5.0) Albumin/Globulin Ratio 0.7 (1.0-1.7) Lipase 102 U/L (73-393) Images: Images CXR Impression: 1. No acute cardiopulmonary process. CT ABD/PELVIS Impression: 1. Left nephrolithiasis without obstructing calculus identified. This could be related to recent passed stone. 2. Punctate calculus in the left kidney and calcifications in the right kidney consistent with medullary nephrocalcinosis. 3. Mild hepatomegaly. Assessment/Plan Assessment/Plan Investigation for Covid 19 infection Acute UTI possibly pyelonephritis Multiple nephro lithiasis bilateral Acute electrolyte derangementhyponatremia, hypokalemia, hypochloremia suggestive of volume depletion Severe protein malnutrition Lactic acidemia Tobacco misuse Admit to medicine for further management Continue empiric IV antibiotics Continue IV fluids Pending urine culture We will start potassium citrate and tamsulosin for kidney stone prevention Counseled on lemon juice water and increasing hydration and smoking cessation to reduce kidney stones. Strain urine Recommend outpatient urology evaluation Ambulation and SCD for DVT prophylaxis Regular diet Full code Discussed with RN and SW Disposition pending urine culture Surrogate decision maker is undesignated Justifications for Admission Other Justification DUNIA DAVIS MD Jun 17, 2020 08:59
[2020-06-17] MEDS ORDERED: ONDANSETRON PF 4 MG/2 ML VIAL. IV PRN (09:00)
[2020-06-17] MEDS ORDERED: ACETAMINOPHEN 325 MG TABLET. PO PRN ×2 (09:00→12:15)
[2020-06-17] MEDS ORDERED: IOHEXOL 300 MG/ML 100ML VIAL. IV ONE (10:30)
[2020-06-17 11:00] VITALS: BP 107/54
[2020-06-17] MEDS ORDERED: DOCUSATE SODIUM 100 MG CAPSULE. PO PRN (12:15)
[2020-06-17] MEDS ORDERED: ONDANSETRON PF 4 MG/2 ML VIAL. IVP PRN (12:15)
[2020-06-17] MEDS ORDERED: MORPHINE SULFATE 2 MG/ML VIAL. IV PRN (12:15)
[2020-06-17] MEDS: IV NORMAL SALINE 1000ML BAG 1,000 ML IV SCH ×4 (12:15→23:10)
[2020-06-17] MEDS ORDERED: SENNOSIDES 8.6 MG TABLET PO PRN (12:15)
[2020-06-17] MEDS ORDERED: DEXTROSE 50% 25 GM / 50ML DISP.SYRIN. IV PRN (12:15)
[2020-06-17] MEDS: POTASSIUM CITRATE 10 MEQ TABLET.ER PO SCH (13:57)
[2020-06-17] MEDS: PIPERACILLIN/TAZOBACTAM 3.375 GM in IV NORMAL SALINE 50ML 50 ML IV SCH ×3 (13:58→23:12)
[2020-06-17 15:00] VITALS: BP 114/66
[2020-06-17] MEDS: MORPHINE SULFATE 4 MG/ML VIAL. IV PRN ×2 (15:49→18:07)
[2020-06-17] MEDS: KETOROLAC 15 MG/ML VIAL. IVP PRN (18:48)
[2020-06-17 19:15] VITALS: BP 96/51
[2020-06-17 23:00] VITALS: BP 97/54
[2020-06-18 03:00] VITALS: BP 119/59
[2020-06-18 04:58] LABS: BASO % 0 % (0-3); EOS % 0 % (0-3); HEMATOCRIT 28.9 % (36.0-47.0); HEMOGLOBIN 9.8 g/dL (12.0-15.5); LYMPH % 14 % (24-48); MEAN CORPUSCULAR HEMOGLOBIN 30 pg (25-35); MEAN CORPUSCULAR HGB CONC 34 g/dL (31-37); MEAN CORPUSCULAR VOLUME 89 fL (79-100); MONO # 1.1 x10^3/uL (0.0-1.1); MONO % 15 % (0-9); NEUT # 4.9 x10^3/uL (1.8-7.7); NEUT % 70 % (31-73); PLATELET COUNT 153 x10^3/uL (140-400); RED BLOOD COUNT 3.25 x10^6/uL (3.50-5.40); RED CELL DISTRIBUTION WIDTH 13.1 % (11.5-14.5)
--- NOTE | 2020-06-18 05:21 | NUR ---
Pt called for pain meds at [facility] - RN in another room. When went to pt room to double check - pt asleep and did not respond to name being called. Later pt informed tech that RN never came to room. RN went to room again shortly thereafter and pt again asleep. Tech reported pt stated was in so much pain couldn't sleep, yet did not respond to verbal stimuli. Will continue to monitor.
[2020-06-18 05:33] LABS: CALCIUM 8.1 mg/dL (8.5-10.1); CREATININE 0.7 mg/dL (0.6-1.0); GFR 96.4; PHOSPHORUS 1.9 mg/dL (2.6-4.7); POTASSIUM 3.4 mmol/L (3.5-5.1)
[2020-06-18] MEDS: KETOROLAC 15 MG/ML VIAL. IVP PRN (05:35)
[2020-06-18] MEDS: IV NORMAL SALINE 1000ML BAG 1,000 ML IV SCH ×2 (05:35→10:52)
[2020-06-18] MEDS: PIPERACILLIN/TAZOBACTAM 3.375 GM in IV NORMAL SALINE 50ML 50 ML IV SCH ×2 (06:08→14:04)
[2020-06-18 07:00] VITALS: BP 120/53
[2020-06-18] MEDS ORDERED: TAMSULOSIN 0.4 MG CAP.ER.24H. PO SCH (09:00)
[2020-06-18 10:53] VITALS: BP 120/53
[2020-06-18] MEDS: POTASSIUM CITRATE 10 MEQ TABLET.ER PO SCH (10:53)
--- NOTE | 2020-06-18 12:37 | NUR ---
SW following for discharge planning. Spoke with RN and reviewed chart. Pt COVID pending, regular diet, IV Zosyn, room air. Pt from home with family. Pt will likely discharge home today, self-care on oral medications. SW following and available as needed. No anticipated SW needs on discharge. Addendum: 06/18/20 at 1355 by GERMÁN PATTEN SW pt to discharge home, self-care on oral medications. No further SW needs
--- NOTE | 2020-06-18 13:22 | PDOC ---
[employer] PROGRESS NOTE Date of Service DOS: DATE: 06/18/20 TIME: 13:18 Chief Complaint Chief Complaint Investigation for Covid 19 infection Acute UTI possibly pyelonephritis Multiple nephro lithiasis bilateral Acute electrolyte derangementhyponatremia, hypokalemia, hypochloremia suggestive of volume depletion Severe protein malnutrition Lactic acidemia Tobacco misuse Admit to medicine for further management Continue empiric IV antibiotics Continue IV fluids Pending urine culture We will start potassium citrate and tamsulosin for kidney stone prevention Counseled on lemon juice water and increasing hydration and smoking cessation to reduce kidney stones. Strain urine Recommend outpatient urology evaluation Ambulation and SCD for DVT prophylaxis Regular diet Full code Discussed with RN and SW Disposition pending urine culture Surrogate decision maker is undesignated History of Present Illness History of Present Illness 34 year old presents with chief complaint of dysuria. Patient was here at the beginning of May was diagnosed with urinary tract infection. Over the last 3 to 4 days patient's had progressively worsening symptoms that consist of back pain with dysuria. Patient had also a headache and subjective fever and chills. Patient had some nausea as well. Symptoms are worse with urination and palpation of her back. Patient states her pain is in the back and radiates to her abdomen. Pain is moderate at rest and more severe at times and severity. Symptoms are somewhat relieved with Tylenol but not completely. 06/18/2020 Patient seen and evaluated bedside. She admits to history of kidney stones, and notes some improvement in her left flank pain. She denies any nausea or vomiting. States she has not yet established primary care provider, and we discussed importance of doing so at this time. Will discharge patient on oral antibiotics to complete her treatment as outpatient. Patient 30 minutes was spent managing the discharge this patient. Vitals/I&O Vitals/I&O: Vital Signs Date Time Temp Pulse Resp B/P (MAP) Pulse Ox O2 Delivery O2 Flow Rate FiO2 06/18/20 10:53 98.1 77 22 120/53 (75) 96 Room Air 98.1 I & O 06/17/20 06/17/20 06/18/20 15:00 23:00 07:00 Intake Total 2005 ml 400 ml 1440 ml Output Total 200 ml Balance 1805 ml 400 ml 1440 ml Physical Exam General: Alert, No acute distress Heart: Regular rate Lungs: Clear Abdomen: Soft, No tenderness Extremities: No clubbing, No cyanosis Skin: No rashes, No breakdown Labs Labs: Laboratory Tests Test 06/18/20 04:10 White Blood Count 7.0 x10^3/uL (4.0-11.0) Red Blood Count 3.25 x10^6/uL (3.50-5.40) Hemoglobin 9.8 g/dL (12.0-15.5) Hematocrit 28.9 % (36.0-47.0) Mean Corpuscular Volume 89 fL (79-100) Mean Corpuscular Hemoglobin 30 pg (25-35) Mean Corpuscular Hemoglobin Concent 34 g/dL (31-37) Red Cell Distribution Width 13.1 % (11.5-14.5) Platelet Count 153 x10^3/uL (140-400) Neutrophils (%) (Auto) 70 % (31-73) Lymphocytes (%) (Auto) 14 % (24-48) Monocytes (%) (Auto) 15 % (0-9) Eosinophils (%) (Auto) 0 % (0-3) Basophils (%) (Auto) 0 % (0-3) Neutrophils # (Auto) 4.9 x10^3/uL (1.8-7.7) Lymphocytes # (Auto) 1.0 x10^3/uL (1.0-4.8) Monocytes # (Auto) 1.1 x10^3/uL (0.0-1.1) Eosinophils # (Auto) 0.0 x10^3/uL (0.0-0.7) Basophils # (Auto) 0.0 x10^3/uL (0.0-0.2) Sodium Level 137 mmol/L (136-145) Potassium Level 3.4 mmol/L (3.5-5.1) Chloride Level 103 mmol/L (98-107) Carbon Dioxide Level 27 mmol/L (21-32) Anion Gap 7 (6-14) Blood Urea Nitrogen 8 mg/dL (7-20) Creatinine 0.7 mg/dL (0.6-1.0) Estimated GFR (Cockcroft-Gault) 96.4 Glucose Level 99 mg/dL (70-99) Calcium Level 8.1 mg/dL (8.5-10.1) Phosphorus Level 1.9 mg/dL (2.6-4.7) Magnesium Level 2.0 mg/dL (1.8-2.4) Review of Systems Review of Systems: Left flank pain, dysuria. Denies nausea, denies vomiting, denies chest pain, denies shortness of breath. Assessment and Plan Assessmemt and Plan Problems Medical Problems: (1) Flank pain Status: Acute (2) Pyelonephritis Status: Acute (3) Sepsis Status: Acute (4) Suspected COVID-19 virus infection Status: Acute (5) Urinary tract infection Status: Acute Comment Review of Relevant I have reviewed the following items irina (where applicable) has been applied. Medications: Current Medications Medications (Trade) Dose Ordered Sig/Brent Route PRN Reason Start Time Stop Time Status Last Admin Dose Admin Tamsulosin HCl (Flomax) 0.4 mg DAILY PO 06/18/20 09:00 06/18/20 08:19 Ketorolac Tromethamine (Toradol 15mg Vial) 15 mg PRN Q8HRS PRN IVP PAIN 06/17/20 18:30 06/19/20 18:30 06/18/20 05:35 Justifications for Admission UTI Indications Worse Clinical Findings?: Yes Justification for admission: Patient's worsening clinical findings as indicated (by a fever of & pain of) despite outpatient/observation treatment makes it imperative that patient is managed as an inpatient. Other Justification JACOB GRIMES MD Jun 18, 2020 13:22
[2020-06-18] MEDS ORDERED: CEFI400C PO (13:26)
[2020-06-18] MEDS ORDERED: TRAM50TA PO (13:26)
--- NOTE | 2020-06-18 13:29 | PDOC3 ---
Discharge Summary Visit Information Date of Admission: Jun 17, 2020 Date of Discharge: Jun 18, 2020 Final Diagnosis Problems Medical Problems: (1) Flank pain Status: Acute (2) Pyelonephritis Status: Acute (3) Sepsis Status: Acute (4) Suspected COVID-19 virus infection Status: Acute (5) Urinary tract infection Status: Acute Brief Hospital Course Allergies Allergies Coded Allergies Type Severity Reaction Last Updated Verified Sulfa (Sulfonamide Antibiotics) Allergy Intermediate HIVES 05/29/20 Yes sulfamethoxazole Allergy Intermediate HIVES 05/29/20 Yes trimethoprim Allergy Intermediate HIVES 05/29/20 Yes Vital Signs Vital Signs Date Time Temp Pulse Resp B/P (MAP) Pulse Ox O2 Delivery O2 Flow Rate FiO2 06/18/20 10:53 98.1 77 22 120/53 (75) 96 Room Air 98.1 Lab Results Laboratory Tests Test 06/17/20 07:21 06/17/20 07:30 06/17/20 11:00 06/18/20 04:10 Bedside Urine HCG, Qualitative Hcg negative (Negative) White Blood Count 8.5 x10^3/uL (4.0-11.0) 7.0 x10^3/uL (4.0-11.0) Red Blood Count 4.00 x10^6/uL (3.50-5.40) 3.25 x10^6/uL (3.50-5.40) Hemoglobin 12.1 g/dL (12.0-15.5) 9.8 g/dL (12.0-15.5) Hematocrit 35.3 % (36.0-47.0) 28.9 % (36.0-47.0) Mean Corpuscular Volume 88 fL (79-100) 89 fL (79-100) Mean Corpuscular Hemoglobin 30 pg (25-35) 30 pg (25-35) Mean Corpuscular Hemoglobin Concent 34 g/dL (31-37) 34 g/dL (31-37) Red Cell Distribution Width 13.5 % (11.5-14.5) 13.1 % (11.5-14.5) Platelet Count 174 x10^3/uL (140-400) 153 x10^3/uL (140-400) Neutrophils (%) (Auto) 79 % (31-73) 70 % (31-73) Lymphocytes (%) (Auto) 8 % (24-48) 14 % (24-48) Monocytes (%) (Auto) 13 % (0-9) 15 % (0-9) Eosinophils (%) (Auto) 0 % (0-3) 0 % (0-3) Basophils (%) (Auto) 0 % (0-3) 0 % (0-3) Neutrophils # (Auto) 6.7 x10^3/uL (1.8-7.7) 4.9 x10^3/uL (1.8-7.7) Lymphocytes # (Auto) 0.7 x10^3/uL (1.0-4.8) 1.0 x10^3/uL (1.0-4.8) Monocytes # (Auto) 1.1 x10^3/uL (0.0-1.1) 1.1 x10^3/uL (0.0-1.1) Eosinophils # (Auto) 0.0 x10^3/uL (0.0-0.7) 0.0 x10^3/uL (0.0-0.7) Basophils # (Auto) 0.0 x10^3/uL (0.0-0.2) 0.0 x10^3/uL (0.0-0.2) Urine Collection Type Unknown Urine Color Karen Urine Clarity Clear Urine pH 6.5 (<5.0-8.0) Urine Specific [place] 1.020 (1.000-1.030) Urine Protein 100 mg/dL (NEG-TRACE) Urine Glucose (UA) Negative mg/dL (NEG) Urine Ketones (Stick) Negative mg/dL (NEG) Urine Blood Small (NEG) Urine Nitrite Positive (NEG) Urine Bilirubin Small (NEG) Urine Urobilinogen Dipstick 4.0 mg/dL (0.2 mg/dL) Urine Leukocyte Esterase Moderate (NEG) Urine RBC 3-5 /HPF (0-2) Urine WBC >40 /HPF (0-4) Urine Squamous Epithelial Cells Mod /LPF Urine Bacteria Many /HPF (0-FEW) Urine Mucus Mod /LPF Sodium Level 132 mmol/L (136-145) 137 mmol/L (136-145) Potassium Level 3.4 mmol/L (3.5-5.1) 3.4 mmol/L (3.5-5.1) Chloride Level 96 mmol/L (98-107) 103 mmol/L (98-107) Carbon Dioxide Level 24 mmol/L (21-32) 27 mmol/L (21-32) Anion Gap 12 (6-14) 7 (6-14) Blood Urea Nitrogen 10 mg/dL (7-20) 8 mg/dL (7-20) Creatinine 0.8 mg/dL (0.6-1.0) 0.7 mg/dL (0.6-1.0) Estimated GFR (Cockcroft-Gault) 82.6 96.4 BUN/Creatinine Ratio 13 (6-20) Glucose Level 158 mg/dL (70-99) 99 mg/dL (70-99) Lactic Acid Level 2.1 mmol/L (0.4-2.0) 1.4 mmol/L (0.4-2.0) Calcium Level 9.0 mg/dL (8.5-10.1) 8.1 mg/dL (8.5-10.1) Total Bilirubin 0.5 mg/dL (0.2-1.0) Aspartate Amino Transf (AST/SGOT) 14 U/L (15-37) Alanine Aminotransferase (ALT/SGPT) 17 U/L (14-59) Alkaline Phosphatase 65 U/L (46-116) Total Protein 7.1 g/dL (6.4-8.2) Albumin 2.9 g/dL (3.4-5.0) Albumin/Globulin Ratio 0.7 (1.0-1.7) Lipase 102 U/L (73-393) Phosphorus Level 1.9 mg/dL (2.6-4.7) Magnesium Level 2.0 mg/dL (1.8-2.4) Laboratory Tests Test 06/18/20 04:10 White Blood Count 7.0 x10^3/uL (4.0-11.0) Red Blood Count 3.25 x10^6/uL (3.50-5.40) Hemoglobin 9.8 g/dL (12.0-15.5) Hematocrit 28.9 % (36.0-47.0) Mean Corpuscular Volume 89 fL (79-100) Mean Corpuscular Hemoglobin 30 pg (25-35) Mean Corpuscular Hemoglobin Concent 34 g/dL (31-37) Red Cell Distribution Width 13.1 % (11.5-14.5) Platelet Count 153 x10^3/uL (140-400) Neutrophils (%) (Auto) 70 % (31-73) Lymphocytes (%) (Auto) 14 % (24-48) Monocytes (%) (Auto) 15 % (0-9) Eosinophils (%) (Auto) 0 % (0-3) Basophils (%) (Auto) 0 % (0-3) Neutrophils # (Auto) 4.9 x10^3/uL (1.8-7.7) Lymphocytes # (Auto) 1.0 x10^3/uL (1.0-4.8) Monocytes # (Auto) 1.1 x10^3/uL (0.0-1.1) Eosinophils # (Auto) 0.0 x10^3/uL (0.0-0.7) Basophils # (Auto) 0.0 x10^3/uL (0.0-0.2) Sodium Level 137 mmol/L (136-145) Potassium Level 3.4 mmol/L (3.5-5.1) Chloride Level 103 mmol/L (98-107) Carbon Dioxide Level 27 mmol/L (21-32) Anion Gap 7 (6-14) Blood Urea Nitrogen 8 mg/dL (7-20) Creatinine 0.7 mg/dL (0.6-1.0) Estimated GFR (Cockcroft-Gault) 96.4 Glucose Level 99 mg/dL (70-99) Calcium Level 8.1 mg/dL (8.5-10.1) Phosphorus Level 1.9 mg/dL (2.6-4.7) Magnesium Level 2.0 mg/dL (1.8-2.4) Brief Hospital Course Ms. Adams is a 34 old female who presented with pyelonephritis, nephrolithiasis . She was treated with IV antibiotics. She was discharged home the next day with oral antibiotics and pain medication. She was recommended to establish primary care due to her history of nephrolithiasis. Discharge Information Condition at Discharge: Improved Disposition/Orders: D/C to Home Scheduled Cephalexin (Keflex) 500 Mg Capsule, 1 CAP PO BID for 7 Days, #14 Ref 0 Prescribed by: TIMOTHY LEO APRN on 05/29/20 3805 Phenazopyridine Hcl (Pyridium) 100 Mg Tablet, 1 TAB PO TID for urinary discomfort for 3 Days, #9 Ref 0 Prescribed by: TIMOTHY LEO APRN on 05/29/20 185 Scheduled PRN Tramadol Hcl (Tramadol Hcl) 50 Mg Tablet, 50 MG PO Q6HRS PRN for PAIN, #28 Ref 0 Prescribed by: JACOB GRIMES MD on 06/18/20 1326 Justicifation of Admission Dx: Justifications for Admission: Justification of Admission Dx: Yes (Pyelonephritis) JACOB GRIMES MD Jun 18, 2020 13:29
--- NOTE | 2020-06-18 16:05 | NUR ---
Pt discharged to home with grandma. Discharge teaching done. Patient verbalized understanding.
== END 2020-06-18 16:05 | disposition home or self-care (01) | DRG 871 ==
LOC: ER 07:11 → 6 SOUTH 08:49
PROVIDERS: ADMIT Internal Medicine; ATTEND Internal Medicine
DX: A41.9 Sepsis, unspecified organism (principal); E43 Unspecified severe protein-calorie malnutrition; N12 Tubulo-interstitial nephritis, not specified as acute or chronic; E87.1 Hypo-osmolality and hyponatremia; E87.2 Acidosis; N39.0 Urinary tract infection, site not specified; F17.200 Nicotine dependence, unspecified, uncomplicated; N20.0 Calculus of kidney; E87.6 Hypokalemia; E87.8 Other disorders of electrolyte and fluid balance, not elsewhere classified; N29 Other disorders of kidney and ureter in diseases classified elsewhere; Z20.828 Contact with and (suspected) exposure to other viral communicable diseases; Z68.23 Body mass index [BMI] 23.0-23.9, adult; Z87.440 Personal history of urinary (tract) infections; Z88.2 Allergy status to sulfonamides; Z88.8 Allergy status to other drugs, medicaments and biological substances
CPT/HCPCS: 36415; 71045; 74176; 80048; 80053; 81001; 81025; 83605; 83690; 83735; 84100; 85025; 87040; 87086; J0696; J1885; J2270; J2405; J2543; J7030; U0003; G0378

== ENCOUNTER 2020-11-02 19:37 | Emergency (ER) | payer OTHER ==
[~2020-11-02] VITALS: Ht 160 cm; Wt 135.0 kg
[~2020-11-02 19:37] MED LIST changes: +CEFI400C PO; +TRAM50TA PO
[2020-11-02 20:21] LABS: BILIRUBIN,URINE NEGATIVE (NEG); CLARITY,URINE CLEAR; COLOR,URINE YELLOW; NITRITE,URINE POSITIVE (NEG); PH,URINE 7.5 (<5.0-8.0); PROTEIN,URINE 30 mg/dL (NEG-TRACE)
[2020-11-02 20:29] VITALS: BP 112/75
[2020-11-02 20:31] LABS: BACTERIA,URINE MANY /HPF (0-FEW)
[2020-11-02 20:34] LABS: WBC,URINE >40 /HPF (0-4)
[2020-11-02] MEDS ORDERED: ONDANSETRON PF 4 MG/2 ML VIAL. IV ONE (21:00)
[2020-11-02] MEDS ORDERED: IV NORMAL SALINE 1000ML BAG 1,000 ML IV ONE (21:00)
[2020-11-02] MEDS ORDERED: cefTRIAXone IV Push 1 GM VIAL. IVP ONE (21:00)
[2020-11-02] MEDS ORDERED: ACETAMINOPHEN 500 MG TABLET PO ONE (21:15)
[2020-11-02 21:16] LABS: BASO % 0 % (0-3); EOS % 0 % (0-3); HEMATOCRIT 38.8 % (36.0-47.0); HEMOGLOBIN 13.2 g/dL (12.0-15.5); LYMPH # 0.7 x10^3/uL (1.0-4.8); LYMPH % 5 % (24-48); MEAN CORPUSCULAR HEMOGLOBIN 30 pg (25-35); MEAN CORPUSCULAR HGB CONC 34 g/dL (31-37); MEAN CORPUSCULAR VOLUME 89 fL (79-100); MONO # 1.5 x10^3/uL (0.0-1.1); MONO % 12 % (0-9); NEUT # 10.4 x10^3/uL (1.8-7.7); NEUT % 83 % (31-73); PLATELET COUNT 175 x10^3/uL (140-400); RED BLOOD COUNT 4.37 x10^6/uL (3.50-5.40); RED CELL DISTRIBUTION WIDTH 12.6 % (11.5-14.5); WHITE BLOOD COUNT 12.6 x10^3/uL (4.0-11.0)
[2020-11-02 21:27] LABS: CALCIUM 8.6 mg/dL (8.5-10.1); CREATININE 0.7 mg/dL (0.6-1.0); GFR 95.8; POTASSIUM 4.2 mmol/L (3.5-5.1)
[2020-11-02] MEDS ORDERED: CIPR500T94 PO (21:47)
[2020-11-02] MEDS ORDERED: HYDR-2761 PO (21:47)
[2020-11-02] MEDS ORDERED: PHEN-318 PO (21:47)
[2020-11-02] MEDS ORDERED: ONDA4TAB12 PO (21:47)
--- NOTE | 2020-11-02 21:47 | ED.ADGEN ---
Past Medical History Past Medical History: Kidney Infection, Kidney Stone, UTI Past Surgical History: Tubal ligation Smoking Status: Current Every Day Smoker Alcohol Use: Occasionally Drug Use: None General Adult EDM: Chief Complaint: PAIN ON URINATION HPI: HPI: Patient is a 35 year old female who presents emergency department with complaints of low back pain, dysuria, body aches, fever, and headache for the last 3 days. Patient reports she has had increased urinary frequency, dysuria, and urgency. She denies any hematuria, she does report foul-smelling urine. Patient denies any abnormal vaginal discharge, vaginal odor, or concerns of sexually transmitted infection. She does complain of nausea but denies any abdominal pain, vomiting, or diarrhea. She currently rates her discomfort a 9 out of 10 on the pain scale, she denies any alleviating factors pain is worse with urination. Review of Systems: Review of Systems: Complete ROS is negative unless otherwise noted in HPI. Current Medications: Current Medications Medications (Trade) Dose Ordered Sig/Brent Start Time Stop Time Status Last Admin Dose Admin Acetaminophen (Tylenol) 1,000 mg 1X ONCE 11/02/20 21:15 11/02/20 21:20 DC Ceftriaxone Sodium (Rocephin) 1 gm 1X ONCE 11/02/20 21:00 11/02/20 21:01 DC 11/02/20 21:20 1 GM Ondansetron HCl (Zofran) 4 mg 1X ONCE 11/02/20 21:00 11/02/20 21:01 DC 11/02/20 21:20 4 MG Sodium Chloride 1,000 ml @ 1,000 mls/hr 1X ONCE 11/02/20 21:00 11/02/20 21:59 11/02/20 21:20 1,000 MLS/HR Allergies: Allergies: Allergies Coded Allergies Type Severity Reaction Last Updated Verified Penicillins Allergy Intermediate Hives 11/02/20 Yes Sulfa (Sulfonamide Antibiotics) Allergy Intermediate HIVES 05/29/20 Yes sulfamethoxazole Allergy Intermediate HIVES 05/29/20 Yes trimethoprim Allergy Intermediate HIVES 05/29/20 Yes Physical Exam: PE: See Above Constitutional: Well developed, well nourished, no acute distress, non-toxic appearance. [] HENT: Normocephalic, atraumatic, bilateral external ears normal, nose normal. [] Eyes: PERRLA, EOMI, conjunctiva normal, no discharge. [] Neck: Normal range of motion, no stridor. [] Cardiovascular:Heart rate regular tachycardic rhythm Lungs & Thorax: Respirations even and unlabored, no retractions, no respiratory distress Abdomen: soft, suprapubic tenderness otherwise nontender to palpation, no palpable mass, no pulsatile mass, Back: No bony tenderness, bilateral CVA tenderness Skin: Flushed, hot, dry, no rash. [] Extremities: No cyanosis, ROM intact, no edema. [] Neurologic: Alert and oriented X 3, motor, normal sensory, no focal deficits noted. [] Psychologic: Affect normal, judgement normal, mood normal. [] Current Patient Data: Labs: Laboratory Tests Test 11/02/20 19:40 11/02/20 20:15 11/02/20 21:07 Urine Collection Type Void Urine Color Yellow Urine Clarity Clear Urine pH 7.5 (<5.0-8.0) Urine Specific [place] 1.015 (1.000-1.030) Urine Protein 30 mg/dL (NEG-TRACE) Urine Glucose (UA) Negative mg/dL (NEG) Urine Ketones (Stick) >=80 mg/dL (NEG) Urine Blood Negative (NEG) Urine Nitrite Positive (NEG) Urine Bilirubin Negative (NEG) Urine Urobilinogen Dipstick 1.0 mg/dL (0.2 mg/dL) Urine Leukocyte Esterase Moderate (NEG) Urine RBC 3-5 /HPF (0-2) Urine WBC >40 /HPF (0-4) Urine Squamous Epithelial Cells Many /LPF Urine Bacteria Many /HPF (0-FEW) Urine Mucus Mod /LPF POC Urine HCG, Qualitative Hcg negative (Negative) White Blood Count 12.6 x10^3/uL (4.0-11.0) H Red Blood Count 4.37 x10^6/uL (3.50-5.40) Hemoglobin 13.2 g/dL (12.0-15.5) Hematocrit 38.8 % (36.0-47.0) Mean Corpuscular Volume 89 fL (79-100) Mean Corpuscular Hemoglobin 30 pg (25-35) Mean Corpuscular Hemoglobin Concent 34 g/dL (31-37) Red Cell Distribution Width 12.6 % (11.5-14.5) Platelet Count 175 x10^3/uL (140-400) Neutrophils (%) (Auto) 83 % (31-73) H Lymphocytes (%) (Auto) 5 % (24-48) L Monocytes (%) (Auto) 12 % (0-9) H Eosinophils (%) (Auto) 0 % (0-3) Basophils (%) (Auto) 0 % (0-3) Neutrophils # (Auto) 10.4 x10^3/uL (1.8-7.7) H Lymphocytes # (Auto) 0.7 x10^3/uL (1.0-4.8) L Monocytes # (Auto) 1.5 x10^3/uL (0.0-1.1) H Eosinophils # (Auto) 0.0 x10^3/uL (0.0-0.7) Basophils # (Auto) 0.0 x10^3/uL (0.0-0.2) Sodium Level 133 mmol/L (136-145) L Potassium Level 4.2 mmol/L (3.5-5.1) Chloride Level 97 mmol/L (98-107) L Carbon Dioxide Level 28 mmol/L (21-32) Anion Gap 8 (6-14) Blood Urea Nitrogen 9 mg/dL (7-20) Creatinine 0.7 mg/dL (0.6-1.0) Estimated GFR (Cockcroft-Gault) 95.8 Glucose Level 105 mg/dL (70-99) H Calcium Level 8.6 mg/dL (8.5-10.1) Laboratory Tests 11/02/20 21:07 Laboratory Tests 11/02/20 21:07 Vital Signs: Vital Signs Date Time Temp Pulse Resp B/P (MAP) Pulse Ox O2 Delivery O2 Flow Rate FiO2 11/02/20 20:29 99.1 112 16 112/75 (87) 99 Room Air 99.1 EKG: EKG: [] Heart Score: C/O Chest Pain: No Risk Scores: Score 0 - 3: 2.5% MACE over next 6 weeks - Discharge Home Score 4 - 6: 20.3% MACE over next 6 weeks - Admit for Clinical Observation Score 7 - 10: 72.7% MACE over next 6 weeks - Early Invasive Strategies Radiology/Procedures: Radiology/Procedures: [] Course & Med Decision Making: Course & Med Decision Making Pertinent Labs and Imaging studies reviewed. (See chart for details) 35-year-old female presents emergency department with concerns of urinary tract infection. Patient's urinalysis is concerning for urinary tract infection with nitrites positive, moderate leuk esterase, greater than 40 white blood cells, and many bacteria, urine is negative. Patient CBC reveals white blood cell count of 12.6, otherwise unremarkable; BMP reveals sodium of 133, chloride of 97, glucose of 105 Patient was given a liter normal saline, 4 mg of Zofran, 1 g of Rocephin, and a gram of Tylenol in the emergency department, she reported feeling better after these medications. Patient declined admission to the hospital for further treatment of pyelonephritis. Prescriptions were written for Cipro 500 mg p.o. twice daily x7 days, Pyridium 200 mg every 8 hours as needed dysuria, Zofran 4 m g every 6 hours as needed nausea, and hydrocodone 5/325 milligrams tablets 1 every 6 as needed pain #12 Patient was encouraged to increase clear fluids, avoid bladder irritants, and return to ER if symptoms worsened, she was unable to keep medications down, or fever did not respond to Tylenol and ibuprofen Patient verbalized an understanding of home care, medications, follow-up, and return to ED instructions and was in agreement with the plan of care. Odalis Disclaimer: Odalis Disclaimer: This electronic medical record was generated, in whole or in part, using a voice recognition dictation system. Departure Departure Impression: Primary Impression: Pyelonephritis Additional Impressions: Nausea Dysuria Disposition: 01 HOME / SELF CARE / HOMELESS Condition: STABLE Referrals: NO PCP (PCP) Patient Instructions: Dysuria-Brief, Pyelonephritis, Adult, [id number] Additional Instructions: Fill prescription(s) and take as directed. Avoid bladder irritants such as caffeine, carbonation, and spicy foods. Increase clear fluids. Follow up with your primary care doctor in 1-2 days, return to the ER if symptoms worsen or fever develops. Benedicto [facility] [address] [place] [address] [facility] [address] [place], [place] [id number] [address] [address] [facility] [address] [place] [address] [facility] [address] [place] [address] [facility] [address] [place] [address] [address] [place] [address] [facility] [address] [place] [address] [facility] [address] [place] [address] [facility] [address] [place] [address] Scripts Hydrocodone Bit/Acetaminophen (HYDROCODONE-APAP 5-325 ) 1 Tab Tablet 1 TAB PO PRN Q6HRS PRN for PAIN for 4 Days, #16 TAB 0 Refills Prov: RIVAS ARAIZA APRN 11/02/20 Phenazopyridine Hcl (PYRIDIUM) 200 Mg Tablet 1 TAB PO TID for urinary discomfort for 4 Days, #12 TAB 0 Refills Prov: RIVAS ARAIZA APRN 11/02/20 Ondansetron (ONDANSETRON ODT) 4 Mg Tab.rapdis 1 TAB PO PRN Q6-8HRS PRN for NAUSEA/VOMITING for 4 Days, #16 TAB 0 Refills Prov: RIVAS ARAIZA APRN 11/02/20 Ciprofloxacin Hcl (CIPRO) 500 Mg Tablet 1 TAB PO BID for 7 Days, #14 TAB 0 Refills Prov: RIVAS ARAIZA APRN 11/02/20 Problem Qualifiers RIVAS ARAIZA APRN November 02, 2020 21:47
== END 2020-11-02 22:13 | disposition home or self-care (01) ==
LOC: ER 19:37
DX: N12 Tubulo-interstitial nephritis, not specified as acute or chronic (principal); R30.0 Dysuria; R51.9 Headache, unspecified; F17.200 Nicotine dependence, unspecified, uncomplicated; Z87.440 Personal history of urinary (tract) infections; Z87.442 Personal history of urinary calculi; Z98.51 Tubal ligation status; Z88.0 Allergy status to penicillin; Z88.2 Allergy status to sulfonamides; Z88.1 Allergy status to other antibiotic agents
CPT/HCPCS: 36415; 80048; 81001; 81025; 85025; 87086; 96361; 96374; 96375; 99284; J0696; J2405; J7030

== ENCOUNTER 2021-01-15 13:06 | Emergency (ER) | payer OTHER ==
[~2021-01-15] VITALS: Ht 157.5 cm; Wt 140.0 kg
[~2021-01-15 13:06] MED LIST changes: +CIPR500T94 PO; +HYDR-2761 PO; +ONDA4TAB12 PO; +PHEN-318 PO
[2021-01-15 14:35] LABS: BASO % 1 % (0-3); EOS % 0 % (0-3); HEMATOCRIT 40.2 % (36.0-47.0); HEMOGLOBIN 13.7 g/dL (12.0-15.5); LYMPH % 33 % (24-48); MEAN CORPUSCULAR HEMOGLOBIN 31 pg (25-35); MEAN CORPUSCULAR HGB CONC 34 g/dL (31-37); MEAN CORPUSCULAR VOLUME 90 fL (79-100); MONO # 0.3 x10^3/uL (0.0-1.1); MONO % 11 % (0-9); NEUT # 1.7 x10^3/uL (1.8-7.7); NEUT % 55 % (31-73); PLATELET COUNT 178 x10^3/uL (140-400); RED BLOOD COUNT 4.45 x10^6/uL (3.50-5.40); RED CELL DISTRIBUTION WIDTH 13.4 % (11.5-14.5); WHITE BLOOD COUNT 3.1 x10^3/uL (4.0-11.0)
[2021-01-15 14:39] LABS: BILIRUBIN,URINE NEGATIVE (NEG); CLARITY,URINE CLEAR; COLOR,URINE YELLOW; NITRITE,URINE NEGATIVE (NEG); PROTEIN,URINE NEGATIVE (NEG-TRACE); UROBILINOGEN,URINE 0.2 mg/dL (0.2 mg/dL)
[2021-01-15 14:48] LABS: BACTERIA,URINE FEW /HPF (0-FEW); WBC,URINE OCC /HPF (0-4)
[2021-01-15 14:50] LABS: RBC,URINE RARE /HPF (0-2)
--- NOTE | 2021-01-15 15:24 | RAD ---
US PELVIS W/TV History: Reason: bilateral pelvic pain, bleeding / Spl. Instructions: / History: Comparison: None. Technique: Sonographic examination of the pelvis was performed with transabdominal and transvaginal t echnique. Findings: Uterus- Size: 8.6 x 4.3 x 6.3 cm. Uterine parenchyma: Homogeneous without fibroids. Cervix: Unremarkable. Endometrium- Endometrial Stripe: No abnormal fluid collections in the endometrial cavity, no obvious mass, and no abnormal blood flow within the endometrium by Doppler. Thickness: 6 mm. Adnexa- Right Ovary: Identified and appears normal. Size: 3.1 x 1.8 x 1.4 cm. Doppler: Normal. Left Ovary: Identified and appears normal. Size: 3.0 x 1.4 x 1.1 cm. Doppler: Normal. Mass: No abnormal adnexal masses. Fluid: No abnormal free fluid in the pelvis. Additional findings: None. Impression: 1. No significant pelvic abnormality. Electronically signed by: Endy Fournier MD (01/15/2021 3:21 PM) [facility]
[2021-01-15 16:06] VITALS: BP 128/82
--- NOTE | 2021-01-15 16:21 | ED.ADGEN ---
Past Medical History Past Medical History: Kidney Infection, Kidney Stone, UTI Additional Past Medical Histor: ovarian cysts Past Surgical History: Tubal ligation Smoking Status: Current Every Day Smoker Alcohol Use: Occasionally Drug Use: None General Adult EDM: Chief Complaint: VAGINAL BLEEDING HPI: HPI: Patient is a 35 year old [f__sex] who presents with [] Review of Systems: Review of Systems: Constitutional: Denies fever or chills. [] Eyes: Denies change in visual acuity. [] HENT: Denies nasal congestion or sore throat. [] Respiratory: Denies cough or shortness of breath. [] Cardiovascular: Denies chest pain or edema. [] GI: Denies abdominal pain, nausea, vomiting, bloody stools or diarrhea. [] : Denies dysuria. [] Musculoskeletal: Denies back pain or joint pain. [] Integument: Denies rash. [] Neurologic: Denies headache, focal weakness or sensory changes. [] Endocrine: Denies polyuria or polydipsia. [] Lymphatic: Denies swollen glands. [] Psychiatric: Denies depression or anxiety. [] Allergies: Allergies: Allergies Coded Allergies Type Severity Reaction Last Updated Verified Penicillins Allergy Intermediate Hives 11/02/20 Yes Sulfa (Sulfonamide Antibiotics) Allergy Intermediate HIVES 05/29/20 Yes sulfamethoxazole Allergy Intermediate HIVES 05/29/20 Yes trimethoprim Allergy Intermediate HIVES 05/29/20 Yes Physical Exam: PE: Constitutional: Well developed, well nourished, no acute distress, non-toxic appearance. [] HENT: Normocephalic, atraumatic, bilateral external ears normal, oropharynx moist, no oral exudates, nose normal. [] Eyes: PERRLA, EOMI, conjunctiva normal, no discharge. [] Neck: Normal range of motion, no tenderness, supple, no stridor. [] Cardiovascular:Heart rate regular rhythm, no murmur [] Lungs & Thorax: Bilateral breath sounds clear to auscultation [] Abdomen: Bowel sounds normal, soft, no tenderness, no masses, no pulsatile masses. [] Skin: Warm, dry, no erythema, no rash. [] Back: No tenderness, no CVA tenderness. [] Extremities: No tenderness, no cyanosis, no clubbing, ROM intact, no edema. [] Neurologic: Alert and oriented X 3, normal motor function, normal sensory function, no focal deficits noted. [] Psychologic: Affect normal, judgement normal, mood normal. [] Current Patient Data: Labs: Laboratory Tests Test 01/15/21 14:25 01/15/21 14:32 01/15/21 14:34 White Blood Count 3.1 x10^3/uL (4.0-11.0) L Red Blood Count 4.45 x10^6/uL (3.50-5.40) Hemoglobin 13.7 g/dL (12.0-15.5) Hematocrit 40.2 % (36.0-47.0) Mean Corpuscular Volume 90 fL (79-100) Mean Corpuscular Hemoglobin 31 pg (25-35) Mean Corpuscular Hemoglobin Concent 34 g/dL (31-37) Red Cell Distribution Width 13.4 % (11.5-14.5) Platelet Count 178 x10^3/uL (140-400) Neutrophils (%) (Auto) 55 % (31-73) Lymphocytes (%) (Auto) 33 % (24-48) Monocytes (%) (Auto) 11 % (0-9) H Eosinophils (%) (Auto) 0 % (0-3) Basophils (%) (Auto) 1 % (0-3) Neutrophils # (Auto) 1.7 x10^3/uL (1.8-7.7) L Lymphocytes # (Auto) 1.0 x10^3/uL (1.0-4.8) Monocytes # (Auto) 0.3 x10^3/uL (0.0-1.1) Eosinophils # (Auto) 0.0 x10^3/uL (0.0-0.7) Basophils # (Auto) 0.0 x10^3/uL (0.0-0.2) Urine Collection Type Unknown Urine Color Yellow Urine Clarity Clear Urine pH 7.0 (<5.0-8.0) Urine Specific [place] 1.020 (1.000-1.030) Urine Protein Negative mg/dL (NEG-TRACE) Urine Glucose (UA) Negative mg/dL (NEG) Urine Ketones (Stick) Negative mg/dL (NEG) Urine Blood Small (NEG) Urine Nitrite Negative (NEG) Urine Bilirubin Negative (NEG) Urine Urobilinogen Dipstick 0.2 mg/dL (0.2 mg/dL) Urine Leukocyte Esterase Negative (NEG) Urine RBC Rare /HPF (0-2) Urine WBC Occ /HPF (0-4) Urine Squamous Epithelial Cells Few /LPF Urine Bacteria Few /HPF (0-FEW) Urine Mucus Mod /LPF POC Urine HCG, Qualitative Hcg negative (Negative) Laboratory Tests 01/15/21 14:25 Vital Signs: Vital Signs Date Time Temp Pulse Resp B/P (MAP) Pulse Ox O2 Delivery O2 Flow Rate FiO2 01/15/21 13:56 98.3 98 12 129/90 (87) 99 Room Air 98.3 EKG: EKG: [] Heart Score: Risk Factors: Risk Factors: DM, Current or recent (<one month) smoker, HTN, HLP, family history of CAD, obesity. Risk Scores: Score 0 - 3: 2.5% MACE over next 6 weeks - Discharge Home Score 4 - 6: 20.3% MACE over next 6 weeks - Admit for Clinical Observation Score 7 - 10: 72.7% MACE over next 6 weeks - Early Invasive Strategies Radiology/Procedures: Radiology/Procedures: [] Course & Med Decision Making: Course & Med Decision Making Pertinent Labs and Imaging studies reviewed. (See chart for details) [] Dragon Disclaimer: Dragon Disclaimer: This electronic medical record was generated, in whole or in part, using a voice recognition dictation system. Departure Departure Impression: Primary Impression: Vaginal bleeding Disposition: HOME / SELF CARE / HOMELESS Condition: STABLE Referrals: NO PCP (PCP) Patient Instructions: Dysmenorrhea MELANIE YBARRA MD Jan 15, 2021 16:21
== END 2021-01-15 16:20 | disposition home or self-care (01) ==
LOC: ER 13:06
DX: N93.9 Abnormal uterine and vaginal bleeding, unspecified (principal); F17.200 Nicotine dependence, unspecified, uncomplicated; Z87.442 Personal history of urinary calculi; Z98.51 Tubal ligation status; Z88.0 Allergy status to penicillin; Z88.1 Allergy status to other antibiotic agents; Z88.2 Allergy status to sulfonamides
CPT/HCPCS: 36415; 76830; 76856; 81001; 81025; 85025; 99285-25